=== PATIENT | male | born 1980 | race Caucasian/White ===

== ENCOUNTER 2020-07-10 19:21 | Emergency (ER) | payer OTHER ==
[~2020-07-10] VITALS: Ht 193 cm; Wt 99.6 kg
[2020-07-10] MEDS ORDERED: KEFL500C17 PO (19:59)
[2020-07-10] MEDS ORDERED: CEPHALEXIN 500 MG CAP PO ONE (20:15)
[2020-07-10 20:28] VITALS: BP 141/68
== END 2020-07-10 20:28 | disposition home or self-care (01) ==
LOC: M ED 19:21
DX: S61.202A Unspecified open wound of right middle finger without damage to nail, initial encounter (principal); W26.8XXA Contact with other sharp object(s), not elsewhere classified, initial encounter; Y92.018 Other place in single-family (private) house as the place of occurrence of the external cause